=== PATIENT | female | born 1960 | race Caucasian/White ===

== ENCOUNTER 2024-06-23 09:46 | Outpatient (CLI) | payer MEDICARE, OTHER | END 2024-06-23 23:59 | disposition home or self-care (01) | LOC: RAD 09:46 | PROVIDERS: ATTEND Internal Medicine Infectious Disease | DX: Z11.1 Encounter for screening for respiratory tuberculosis (principal) | CPT/HCPCS: 71046 ==

== ENCOUNTER 2025-05-22 12:01 | Outpatient (CLI) | payer BC ==
--- NOTE | 2025-05-22 12:50 | RADIOLOGY REPORT ---
CLINICAL INDICATION: RIGHT FOOT PAIN TECHNIQUE: 3 radiographic views of the right foot were obtained. Comparison: None FINDINGS/IMPRESSION: There is no evidence of acute fracture or dislocation. The visualized joint space is well maintained. Small plantar and posterior calcaneal enthesophytes. The alignment is anatomical. There is no radiopaque foreign body.
== END 2025-05-22 23:59 | disposition home or self-care (01) ==
LOC: RAD 12:01
PROVIDERS: ATTEND Physician Assistant Surgical
DX: M77.31 Calcaneal spur, right foot (principal); M79.671 Pain in right foot
CPT/HCPCS: 73630

== ENCOUNTER 2025-07-23 10:08 | Outpatient (CLI) | payer BC ==
[~2025-07-23 10:08] MED LIST: LIDOcaine 2% Viscous 15ml cup ONE; MIDAZolam 1 MG/ML 5ML VIAL ONE; fentaNYL/PF 50MCG/1 ML 2ML syringe ONE
--- NOTE | 2025-07-23 11:47 | RADIOLOGY REPORT ---
CLINICAL HISTORY: Right foot pain. TECHNIQUE: Multi sequence Multi planar MRI images of the right foot were obtained without contrast. Portions of the hindfoot were not able to be included within the [id number] of the exam. COMPARISON: Radiographs dated 05/22/2025. FINDINGS: No acute fracture or focal marrow contusion. Moderate arthritic changes at the tibiotalar joint with joint space narrowing and prominent subchondral cystic change at the anterior aspect of the tibial plafond. Moderate arthritic changes at the subtalar joint, most prominent at the medial aspect of the subtalar joint with joint space narrowing and mild subchondral edema. [id number] arthritic changes at the talonavicular joint with joint space narrowing and mild subchondral cystic change. Moderate arthritic changes at the 1st tarsometatarsal joint with joint space narrowing and subchondral edema. Moderate cystic change at the fibular sesamoid and mild cystic change at the tibial sesamoid of the 1st metatarsal, may be due to arthritic changes and/or sesamoiditis. No significant joint effusion. There is bunionette deformity of the 5th metatarsal with associated mild varus alignment at the 5th MTP joint. Lisfranc ligament complex is intact. The rest of the visualized ligamentous structures appear otherwise intact. Mild tendinosis of the distal tibialis posterior tendon. Flexor and extensor tendons in the midfoot and forefoot appear intact. Normal appearance of the Visualized musculature in the midfoot and forefoot. Focal fluid collection along the dorsal lateral aspect of the jeffrey avicular joint deep to the extensor digitorum longus tendon, likely bursal fluid collection/Gruberi bursitis. IMPRESSION: 1. Arthritic changes as detailed above. 2. Small bursal collection along the dorsal lateral aspect of the talonavicular joint. 3. Additional findings as detailed above.
== END 2025-07-23 23:59 | disposition home or self-care (01) ==
LOC: MRI02 10:08
PROVIDERS: ATTEND Physician Assistant Surgical
DX: M19.071 Primary osteoarthritis, right ankle and foot (principal); M79.671 Pain in right foot
CPT/HCPCS: 73718; J2250; J3010